=== PATIENT | female | born 1945 ===

== ENCOUNTER 2021-12-22 09:06 | Emergency (ER) | payer OTHER ==
[~2021-12-22] VITALS: Ht 154.9 cm; Wt 56.2 kg
[2021-12-22 09:44] VITALS: BP 106/63
[2021-12-22 10:19] LABS: Urine Bacteria NONE SEEN /hpf (None Seen); Urine Blood Negative /uL (Negative); Urine Specific Gravity 1.004 (1.001-1.035); Urine WBC 1 /hpf (0 - 5)
== END 2021-12-22 10:29 | disposition home or self-care (01) ==
LOC: ER 09:06
DX: S16.1XXA Strain of muscle, fascia and tendon at neck level, initial encounter (principal); S01.81XA Laceration without foreign body of other part of head, initial encounter; I10 Essential (primary) hypertension; W18.00XA Striking against unspecified object with subsequent fall, initial encounter; Y93.89 Activity, other specified; Y92.89 Other specified places as the place of occurrence of the external cause; Y99.8 Other external cause status
CPT/HCPCS: 12011; 70450; 72125; 81001; 99284; J2001

== ENCOUNTER 2022-01-01 10:19 | Emergency (ER) | payer OTHER ==
[~2022-01-01] VITALS: Ht 154.9 cm; Wt 73.5 kg
[2022-01-01 11:16] VITALS: BP 167/61
== END 2022-01-01 11:41 | disposition home or self-care (01) ==
LOC: ER 10:19
DX: S01.01XD Laceration without foreign body of scalp, subsequent encounter (principal); I10 Essential (primary) hypertension; E03.9 Hypothyroidism, unspecified; X58.XXXD Exposure to other specified factors, subsequent encounter